=== PATIENT | male | born 1955 | race Caucasian/White ===

== ENCOUNTER 2024-12-04 12:18 | Emergency (ER) | payer BC, SELFPAY ==
[2024-12-04] VITALS (8 sets, daily range): BP systolic 138–191; BP diastolic 74–86; PULSE 66–79; RESP 13–22; TEMP 36.3–36.7; O2SAT 95–98; BMI 42.2
--- NOTE | 2024-12-04 12:32 | DI.RAD.S_ITS ---
PROCEDURE: XR CHEST 1V INDICATIONS: chest pain TECHNIQUE: One view of the chest was acquired. COMPARISON: None. FINDINGS: Surgical changes and devices: None. Lungs and pleura: Lungs are clear. No pleural effusions or pneumothorax. Mediastinum: Mediastinal contours appear normal. Heart size is normal. Bones and chest wall: No suspicious bony lesions. Overlying soft tissues appear unremarkable. IMPRESSION: No acute cardiopulmonary abnormality is seen. Dictated by: Yasemin Coles M.D. on 12/04/2024 at 12:03 Approved by: Yasemin Coles M.D. on 12/04/2024 at 12:04
--- NOTE | 2024-12-04 12:40 | EKG_ITS ---
[place] [address] [address] [place] [id number] Test Date: 2024-12-04 Pat Name: Han Sandoval Department: [facility] Room: Gender: Male Registered Clinical Dietitian: RAFAEL : 1955 Requested By: Order Number: [id number] Reading MD: Devante Castillo Measurements Intervals [place] Rate: 75 P: 44 GA: 236 QRS: -23 QRSD: 84 T: 22 QT: 386 QTc: 431 Interpretive Statements Sinus rhythm with 1st degree AV block with premature atrial complexes Minimal voltage criteria for LVH, may be normal variant ( R in aVL ) Septal infarct , age undetermined Electronically Signed On 12-05-2024 8:41:51 PDT by Devante Castillo
[2024-12-04] MEDS: SODIUM CHLORIDE 0.9% 1,000 ML 150 ML IV (12:57)
[2024-12-04 13:04] LABS: Add Manual Diff / Slide Review NO; Hematocrit 49.0 % (41-53); Hemoglobin 16.9 g/dL (13.5-17.5); Lymphocytes Absolute Auto 1300 /uL (1100-4500); Mean Corpuscular HGB Conc 34.6 % (30-36); Mean Corpuscular Hemoglobin 33.4 PG (26-34); Mean Corpuscular Volume 96.6 fL (80-100); Platelet Count 175 X10^3/uL (150-400)
[2024-12-04 13:14] LABS: Alanine Aminotransferase 46 IU/L (<50); Albumin 4.7 g/dL (3.5-5.0); Albumin Globulin Ratio 1.4 (1.0-2.8); Alkaline Phosphatase 64 U/L (38-126); Blood Urea Nitrogen 17 mg/dL (9-20); Calcium 9.3 mg/dL (8.4-10.2); Carbon Dioxide 26 mmol/L (22-32); Chloride 101 mmol/L (98-107); Creatine Kinase 415 U/L (55-170); Estimated Glomerular Filt Rate > 60 mL/min (>60); Globulin 3.3 g/dL (1.7-4.1); Glucose 88 mg/dL (70-99); HEMOLYSIS 20 (0-50); Lipase 115 U/L (23-300); Potassium 3.8 mmol/L (3.4-5.1); Sodium 136 mmol/L (137-145); Total Protein 8.0 g/dL (6.3-8.2)
[2024-12-04] MEDS: LABETALOL 20 MG/4 ML SYRINGE 10 MG IV (13:14)
[2024-12-04 13:26] LABS: Troponin I < 0.012 ng/mL (0.01-0.034)
--- NOTE | 2024-12-04 13:30 | ED.GENADULT ---
HPI - General Adult General Chief complaint: Hypertension Stated complaint: water retention, headache, on meds doesnt have it Time Seen by Provider: 12/04/24 12:36 Source: patient Mode of arrival: Ambulatory History of Present Illness HPI narrative: 69-year-old male who is visiting this area has been out of his blood pressure medications for the last 3-4 days. Today his blood pressure became more elevated along with a headache. He denies any other symptoms. No blurry vision no chest pain no shortness of breath. He is currently on sildenafil 20 mg 1 tab p.o. daily, benazepril 40 mg 1 tab p.o. daily, chlorthalidone 25 mg 1 tab p.o. daily for his blood pressure according to his own records. Related Data Previous Rx's ?Medication ?Instructions ?Recorded atorvastatin 40 mg tablet 40 mg PO BEDTIME #7 tabs 12/04/24 benazepril 40 mg tablet 40 mg PO DAILY #7 tabs 12/04/24 chlorthalidone 25 mg tablet 25 mg PO DAILY #7 tabs 12/04/24 sildenafil (pulm.hypertension) 20 20 mg PO DAILY #7 tabs 25 mg tablet Allergies Allergy/AdvReac Type Severity Reaction Status Date / Time No Known Drug Allergies Allergy Verified 12/04/24 12:25 Review of Systems Review of Systems ROS Unobtainable: All systems reviewed & are unremarkable except as noted in HPI and below Patient History Smoking Status: Former smoker Exam Narrative Exam Narrative: General: Patient appears to be in no acute distress, acting appropriately Head: normocephalic, atraumatic, HEENT: Pupils equal round reactive, eyes tracking well, neck supple, no JVD Heart: regular rate and rhythm, no murmurs, rubs, or gallops heard Lungs: clear to auscultation, no adventitious sounds Abdomen: soft , nontender, nondistended, positive bowel sounds Neurological: no focal neurological signs, moving all extremities well, alert and oriented x3, Psych: good judgment ,good insight, mood is normal. Initial Vital Signs Initial Vital Signs: Vital Signs Temperature 97.3 F L 12/04/24 12:25 Pulse Rate 79 12/04/24 12:25 Respiratory Rate 14 12/04/24 12:25 Blood Pressure 173/86 H 12/04/24 12:25 Pulse Oximetry 98 12/04/24 12:25 Oxygen Delivery Method Room Air 12/04/24 12:25 Course Course Course Narrative: Patient given labetalol 10 mg IV x1. His blood pressure did come down in the systolic region by over 20 points. His headache has improved as well. Orders Ordered: ED Orders 12/04/24 12:32 XR chest 1V Stat EKG-12 Lead Stat 12/04/24 12:41 Complete Blood Count AUTO DIFF Stat Comprehensive Metabolic Panel Stat Lipase Stat Troponin & CK Cardiac Panel Stat Sodium Chloride (Normal Saline 0.9%) 1,000 mls @ 150 mls/hr IV CONT VENUS Last Admin: 12/04/24 12:57 Dose: 150 mls/hr Documented By: LM Discontinued Medications Aspirin (Aspirin 81 Mg Chew Tab) 324 mg PO NOW ONE Stop: 12/04/24 12:32 Last Admin: 12/04/24 12:56 Dose: Not Given Documented By: LM Labetalol HCl (Labetalol 20 Mg/4 Ml Syringe) 10 mg IV NOW ONE Stop: 12/04/24 13:00 Last Admin: 12/04/24 13:14 Dose: 10 mg Documented By: TC Reevaluation(s) Reevaluation #1: Upon re-evaluation, his blood pressure is coming down nicely. Patient is eager to be discharged. Vital Signs Vital signs: Vital Signs - 8 hr 12/04/24 12:25 12/04/24 12:52 12/04/24 12:53 Temperature 97.3 F L Pulse Rate 79 76 75 Respiratory Rate 14 Blood Pressure 173/86 H Pulse Oximetry 98 96 96 Oxygen Delivery Method Room Air 12/04/24 12:53 12/04/24 13:14 Temperature Pulse Rate Respiratory Rate Blood Pressure 191/84 H 176/84 H Pulse Oximetry Oxygen Delivery Method Medical Decision Making Differential Diagnosis Differential Diagnosis: Hypertensive urgency versus hypertensive emergency versus atypical angina Condition is:: Improved Chronic Condition is having:: Mild excerbation Condition is at treatment goal?: No Lab Data 12/04/24 12:41 12/04/24 12:41 Labs: Lab Results 12/04/24 Range/Units 12:41 WBC 6.4 (4.5-11.0) X10^3/uL RBC 5.07 (4.5-5.9) X10^6/uL Hgb 16.9 (13.5-17.5) g/dL Hct 49.0 (41-53) % MCV 96.6 (80-100) fL MCH 33.4 (26-34) PG MCHC 34.6 (30-36) % RDW 14.9 H (11.6-14.8) % Plt Count 175 (150-400) X10^3/uL Neut % (Auto) 65.3 (50-75) % Lymph % (Auto) 19.8 L (25-40) % [place] % (Auto) 11.9 (3-14) % Eos % (Auto) 2.4 (2-4) % Baso % (Auto) 0.6 (0-2) % Neut # (Auto) 4200 (1109-7103) /uL Lymph # (Auto) 1300 (8072-8441) /uL [place] # (Auto) 800 (0-900) /uL Eos # (Auto) 200 (0-450) /uL Baso # (Auto) 0 (0-100) /uL Sodium 136 L (137-145) mmol/L Potassium 3.8 (3.4-5.1) mmol/L Chloride 101 (98-107) mmol/L Carbon Dioxide 26 (22-32) mmol/L BUN 17 (9-20) mg/dL Creatinine 1.06 (0.66-1.25) mg/dL Estimated GFR > 60 (>60) mL/min BUN/Creatinine Ratio 16.0 (6-22) Glucose 88 (70-99) mg/dL Calcium 9.3 (8.4-10.2) mg/dL Total Bilirubin 1.0 (0.2-1.3) mg/dL AST 52 (17-59) IU/L ALT 46 (<50) IU/L Alkaline Phosphatase 64 (38-126) U/L Total Creatine Kinase 415 H (55-170) U/L Troponin I < 0.012 (0.01-0.034) ng/mL Total Protein 8.0 (6.3-8.2) g/dL Albumin 4.7 (3.5-5.0) g/dL Globulin 3.3 (1.7-4.1) g/dL Albumin/Globulin Ratio 1.4 (1.0-2.8) Lipase 115 (23-300) U/L ECG Data Interpretation: EKG showing a left axis deviation, sinus rhythm with first-degree AV block with premature atrial complexes. No ST T wave changes. No previous EKG to compare. MDM Narrative Medical decision making narrative: Patient is now stable and blood pressures, now nicely. He will benefit from resuming his blood pressure medications which we will prescribe for 1 week until he can get back to his hometown. bp is 162/74 upon discharge and headache is now gone. ct brain/head negative. Discharge Plan Departure Patient Disposition: Home Clinical Impression: Hypertensive urgency Instructions: DI for High Blood Pressure Activity Restrictions/Additional Instructions: Resume blood pressure medications as prescribed. Follow-up back in the ER if having any chest pain or shortness of breath or new symptoms that do not resolve. Prescriptions: New sildenafil (pulm.hypertension) 20 mg tablet 20 mg PO DAILY Qty: 7 0RF Rx Instructions: administer doses at least 4-6 hours apart atorvastatin 40 mg tablet 40 mg PO BEDTIME Qty: 7 0RF benazepril 40 mg tablet 40 mg PO DAILY Qty: 7 0RF chlorthalidone 25 mg tablet 25 mg PO DAILY Qty: 7 0RF Stand Alone Forms: Patient Portal/API
--- NOTE | 2024-12-04 13:33 | DI.CT.S_ITS ---
PROCEDURE: CT HEAD/BRAIN WO CON INDICATIONS: headache TECHNIQUE: Noncontrast 4.5 mm thick angled axial sections acquired from the foramen magnum to the vertex, with coronal and sagittal reformats. For radiation dose reduction, the following was used: automated exposure control, adjustment of mA and/or kV according to patient size. COMPARISON: None. FINDINGS: Image quality: Diagnostic. CSF spaces: Basal cisterns are patent. No extra-axial fluid collections. The ventricles are symmetric in size and shape. Brain: No intracranial bleeds or mass effect. There is cerebral volume loss, with resultant ventricular and sulcal prominence. There are periventricular and deep white matter chronic small vessel ischemic changes. There is intracranial internal carotid artery atherosclerosis. Skull and face: Calvarium and visualized facial bones appear intact, without suspicious lesions. Sinuses: Visualized sinuses and mastoids are clear. IMPRESSION: No acute intracranial pathology. Dictated by: Yasemin Coles M.D. on 12/04/2024 at 12:59 Approved by: Yasemin Coles M.D. on 12/04/2024 at 13:00
== END 2024-12-04 14:23 | disposition home or self-care (01) ==
PROVIDERS: Emergency Provider Family Medicine
DX: I16.0 Hypertensive urgency (principal); R51.9 Headache, unspecified
CPT/HCPCS: 36415; 70450; 71045; 80053; 82550; 83690; 84484; 85025; 93005; 96374; 99284